=== PATIENT | male | born 1940 | race Caucasian/White ===

== ENCOUNTER → 2019-01-25 | Outpatient (CLI) | payer MEDICARE | END | disposition home or self-care (01) | LOC: CVU 07:29 | PROVIDERS: ATTEND Internal Medicine | DX: E11.51 Type 2 diabetes mellitus with diabetic peripheral angiopathy without gangrene (principal); I70.202 Unspecified atherosclerosis of native arteries of extremities, left leg; I70.291 Other atherosclerosis of native arteries of extremities, right leg; I10 Essential (primary) hypertension; E78.5 Hyperlipidemia, unspecified | CPT/HCPCS: 93922; 93925 ==

== ENCOUNTER 2019-04-20 10:34 | Day surgery (SDC) | payer MEDICARE ==
[2019-04-18 11:33] LABS: MEAN CORPUSCULAR HEMOGLOBIN 35.3 pg (27.5-34.5); MEAN CORPUSCULAR HGB CONC 32.9 g/dL (33.2-36.2); MEAN CORPUSCULAR VOLUME 107.4 fL (81-97); MEAN PLATELET VOLUME 6.8 fL (7.4-10.4); PLATELET COUNT 99 x10^3/uL (130-400); RED BLOOD COUNT 4.06 x10^6/uL (4.38-5.82); RED CELL DISTRIBUTION WIDTH 14.9 % (9.4-14.8)
[2019-04-18 11:46] LABS: BASOPHILS # (AUTO) 0.02 x10^3/uL (0-0.1); BASOPHILS % (AUTO) 0 % (0-1); EOSINOPHILS # (AUTO) 0.07 x10^3/uL (0-0.4); EOSINOPHILS % (AUTO) 1 % (1-7); LYMPHOCYTES # (AUTO) 0.82 x10^3/uL (1-3.4); LYMPHOCYTES % (AUTO) 16 % (22-44); MD SCAN; MONOCYTES # (AUTO) 0.47 x10^3/uL (0.2-0.8); MONOCYTES % (AUTO) 9 % (2-9); NEUTROPHILS # (AUTO) 3.92 x10^3/uL (1.8-6.8); NEUTROPHILS % (AUTO) 74 % (42-75)
[2019-04-18 11:54] LABS: CHLORIDE 108 mmol/L (98-107); CREATININE 1.19 mg/dL (0.7-1.3)
[2019-04-18 11:58] LABS: ANION GAP 7 mmol/L (5-15); CALCIUM 8.9 mg/dL (8.5-10.1)
[~2019-04-20] VITALS: Ht 175.3 cm; Wt 93.8 kg
[~2019-04-20 10:34] MED LIST: ALLO300T PO; ATOR40TA78 PO; CARV3.122 PO; CLOP75TA PO; EMPA25TA PO; FINA5TAB4 PO; INSU100I28 SC; LEVO150T5 PO; TRIA0.1218 PO; WARF6TAB47 PO
[2019-04-20 10:58] VITALS: BP 113/69
[2019-04-20] MEDS ORDERED: SODIUM CHLORIDE 0.9% 1,000 ML IV SCH (11:00)
[2019-04-20] MEDS ORDERED: LIDOCAINE-MPF 1%, 5ML ONE (11:41)
[2019-04-20] MEDS ORDERED: FENTANYL PF 100 MCG/2ML ONE (11:58)
[2019-04-20] MEDS ORDERED: NITROGLYCERIN 5 MG/ML, 10ML ONE (11:58)
[2019-04-20] MEDS ORDERED: HEPARIN 1,000 UNITS/ML, 10ML ONE (11:58)
[2019-04-20] MEDS ORDERED: MIDAZOLAM 1 MG/ML, 5ML ONE (11:58)
[2019-04-20] MEDS ORDERED: FLUMAZENIL 0.1 MG/1 ML, 5ML ONE (11:58)
[2019-04-20] MEDS ORDERED: NALOXONE 1 MG/ML, 2ML ONE (11:59)
[2019-04-20] MEDS ORDERED: PROTAMINE SULFATE 10 MG/ML, 25ML ONE (11:59)
[2019-04-20] MEDS ORDERED: VISIPAQUE 270 MG/ML, 150ML BOTTLE ONE (14:00)
[2019-04-20] MEDS ORDERED: CLOPIDOGREL 75 MG TABLET PO ONE (14:30)
== END 2019-04-20 18:20 | disposition home or self-care (01) ==
LOC: OUT 10:34
PROVIDERS: ATTEND Internal Medicine Cardiovascular Disease
DX: I70.213 Atherosclerosis of native arteries of extremities with intermittent claudication, bilateral legs (principal); T81.89XA Other complications of procedures, not elsewhere classified, initial encounter; I25.10 Atherosclerotic heart disease of native coronary artery without angina pectoris; E11.22 Type 2 diabetes mellitus with diabetic chronic kidney disease; I12.9 Hypertensive chronic kidney disease with stage 1 through stage 4 chronic kidney disease, or unspecified chronic kidney disease; N18.3 Chronic kidney disease, stage 3 (moderate); I48.2 Chronic atrial fibrillation; E03.9 Hypothyroidism, unspecified; E78.2 Mixed hyperlipidemia; E66.3 Overweight; Z68.30 Body mass index [BMI] 30.0-30.9, adult; Z79.4 Long term (current) use of insulin; Z79.01 Long term (current) use of anticoagulants; Z79.1 Long term (current) use of non-steroidal anti-inflammatories (NSAID); Z79.899 Other long term (current) drug therapy; Z95.0 Presence of cardiac pacemaker; Z95.2 Presence of prosthetic heart valve; Y83.8 Other surgical procedures as the cause of abnormal reaction of the patient, or of later complication, without mention of misadventure at the time of the procedure
CPT/HCPCS: 36415; 37225; 75625; 75716; 80048; 85025; 99156; 99157; C1714; C1751; C1769; C1894; C2623; J1644; J2250; J3010; Q9966; J2720; J2310

== ENCOUNTER → 2019-11-09 | Outpatient (CLI) | payer MEDICARE | END | disposition home or self-care (01) | LOC: WOUND 09:54 | PROVIDERS: ATTEND Podiatrist Foot & Ankle Surgery | DX: E11.621 Type 2 diabetes mellitus with foot ulcer (principal); L97.421 Non-pressure chronic ulcer of left heel and midfoot limited to breakdown of skin; L97.411 Non-pressure chronic ulcer of right heel and midfoot limited to breakdown of skin; I10 Essential (primary) hypertension; I48.91 Unspecified atrial fibrillation; E78.5 Hyperlipidemia, unspecified; E11.40 Type 2 diabetes mellitus with diabetic neuropathy, unspecified; E03.9 Hypothyroidism, unspecified; G47.30 Sleep apnea, unspecified; M10.9 Gout, unspecified; Z95.0 Presence of cardiac pacemaker | CPT/HCPCS: 97597; G0463 ==

== ENCOUNTER 2019-11-16 09:19 | Outpatient (CLI) | payer MEDICARE ==
[2020-01-22] MEDS ORDERED: CARV6.2512 PO (15:07)
[2020-01-22] MEDS ORDERED: MULT-658 PO (15:07)
[2020-01-22] MEDS ORDERED: TRIA0.1218 PO (15:07)
[2020-01-22] MEDS ORDERED: CHOL10003 PO (15:07)
[2020-01-22] MEDS ORDERED: ALLO100T30 PO (15:07)
[2020-01-22] MEDS ORDERED: ATOR20TA37 PO (15:07)
[2020-01-22] MEDS ORDERED: VIT1TABL46 PO (15:07)
[2020-01-22] MEDS ORDERED: INSU100V13 SQ (15:07)
[2020-01-22] MEDS ORDERED: LISI-170 PO (15:07)
[2020-01-22] MEDS ORDERED: OXYC-302 PO (15:07)
[2020-01-23] MEDS ORDERED: SEMA7TAB PO (21:12)
[2020-02-28] MEDS ORDERED: DOCU100C33 PO (12:43)
[2020-02-28] MEDS ORDERED: Initiate Coumadin Protocol MC (12:43)
[2020-02-28] MEDS ORDERED: CARV3.1212 PO (12:43)
[2020-02-28] MEDS ORDERED: HYDR-3237 PO (12:43)
[2020-03-12] MEDS ORDERED: TAMS-11 PO (14:55)
== END 2019-11-16 23:59 | disposition home or self-care (01) ==
LOC: WOUND 09:19
PROVIDERS: ATTEND Podiatrist Foot & Ankle Surgery
DX: E11.621 Type 2 diabetes mellitus with foot ulcer (principal); L97.421 Non-pressure chronic ulcer of left heel and midfoot limited to breakdown of skin; L97.411 Non-pressure chronic ulcer of right heel and midfoot limited to breakdown of skin; I10 Essential (primary) hypertension; I48.91 Unspecified atrial fibrillation; E78.5 Hyperlipidemia, unspecified; E11.40 Type 2 diabetes mellitus with diabetic neuropathy, unspecified; E03.9 Hypothyroidism, unspecified; G47.30 Sleep apnea, unspecified; M10.9 Gout, unspecified; Z95.0 Presence of cardiac pacemaker
CPT/HCPCS: 97597

== ENCOUNTER → 2019-11-16 | Outpatient (CLI) | payer MEDICARE | END | disposition home or self-care (01) | LOC: CVU 13:52 | PROVIDERS: ATTEND Internal Medicine Cardiovascular Disease | DX: I70.0 Atherosclerosis of aorta (principal); I70.8 Atherosclerosis of other arteries; I70.293 Other atherosclerosis of native arteries of extremities, bilateral legs | CPT/HCPCS: 93922; 93925; 93978 ==

== ENCOUNTER 2019-11-23 09:39 | Outpatient (CLI) | payer MEDICARE | END 2019-11-23 23:59 | disposition home or self-care (01) | LOC: WOUND 09:39 | PROVIDERS: ATTEND Podiatrist Foot & Ankle Surgery | DX: E11.621 Type 2 diabetes mellitus with foot ulcer (principal); L97.421 Non-pressure chronic ulcer of left heel and midfoot limited to breakdown of skin; L97.411 Non-pressure chronic ulcer of right heel and midfoot limited to breakdown of skin; I10 Essential (primary) hypertension; I48.91 Unspecified atrial fibrillation; E78.5 Hyperlipidemia, unspecified; E11.40 Type 2 diabetes mellitus with diabetic neuropathy, unspecified; E03.9 Hypothyroidism, unspecified; G47.30 Sleep apnea, unspecified; M10.9 Gout, unspecified; Z95.0 Presence of cardiac pacemaker | CPT/HCPCS: 97597 ==

== ENCOUNTER 2019-11-30 09:00 | Outpatient (CLI) | payer MEDICARE | END 2019-11-30 23:59 | disposition home or self-care (01) | LOC: WOUND 09:00 | PROVIDERS: ATTEND Podiatrist Foot & Ankle Surgery | DX: E11.621 Type 2 diabetes mellitus with foot ulcer (principal); L97.421 Non-pressure chronic ulcer of left heel and midfoot limited to breakdown of skin; L97.411 Non-pressure chronic ulcer of right heel and midfoot limited to breakdown of skin; I10 Essential (primary) hypertension; I48.91 Unspecified atrial fibrillation; E78.5 Hyperlipidemia, unspecified; E11.40 Type 2 diabetes mellitus with diabetic neuropathy, unspecified; E03.9 Hypothyroidism, unspecified; G47.30 Sleep apnea, unspecified; M10.9 Gout, unspecified; Z95.0 Presence of cardiac pacemaker | CPT/HCPCS: 11042 ==

== ENCOUNTER 2019-12-07 10:27 | Outpatient (CLI) | payer MEDICARE | END 2019-12-07 23:59 | disposition home or self-care (01) | LOC: WOUND 10:27 | PROVIDERS: ATTEND Podiatrist Foot & Ankle Surgery | DX: E11.621 Type 2 diabetes mellitus with foot ulcer (principal); L97.422 Non-pressure chronic ulcer of left heel and midfoot with fat layer exposed; L97.412 Non-pressure chronic ulcer of right heel and midfoot with fat layer exposed; E11.51 Type 2 diabetes mellitus with diabetic peripheral angiopathy without gangrene; E11.40 Type 2 diabetes mellitus with diabetic neuropathy, unspecified; I48.91 Unspecified atrial fibrillation; G89.29 Other chronic pain; E78.5 Hyperlipidemia, unspecified; E03.9 Hypothyroidism, unspecified; G47.30 Sleep apnea, unspecified; M10.9 Gout, unspecified; I10 Essential (primary) hypertension; Z95.0 Presence of cardiac pacemaker | CPT/HCPCS: 11042 ==

== ENCOUNTER 2019-12-12 13:28 | Outpatient (CLI) | payer MEDICARE | END 2019-12-12 23:59 | disposition home or self-care (01) | LOC: WOUND 13:28 | PROVIDERS: ATTEND Nurse Practitioner Family | DX: E11.621 Type 2 diabetes mellitus with foot ulcer (principal); L97.412 Non-pressure chronic ulcer of right heel and midfoot with fat layer exposed; L97.422 Non-pressure chronic ulcer of left heel and midfoot with fat layer exposed; E11.22 Type 2 diabetes mellitus with diabetic chronic kidney disease; I12.9 Hypertensive chronic kidney disease with stage 1 through stage 4 chronic kidney disease, or unspecified chronic kidney disease; N18.9 Chronic kidney disease, unspecified; E11.40 Type 2 diabetes mellitus with diabetic neuropathy, unspecified; E11.51 Type 2 diabetes mellitus with diabetic peripheral angiopathy without gangrene; I10 Essential (primary) hypertension; I70.0 Atherosclerosis of aorta; I70.8 Atherosclerosis of other arteries; I48.91 Unspecified atrial fibrillation; M10.9 Gout, unspecified; G89.29 Other chronic pain; G47.30 Sleep apnea, unspecified; E78.5 Hyperlipidemia, unspecified; E03.9 Hypothyroidism, unspecified; Z95.0 Presence of cardiac pacemaker | CPT/HCPCS: G0463 ==

== ENCOUNTER 2019-12-14 09:37 | Outpatient (CLI) | payer MEDICARE | END 2019-12-14 23:59 | disposition home or self-care (01) | LOC: WOUND 09:37 | PROVIDERS: ATTEND Podiatrist Foot & Ankle Surgery | DX: E11.621 Type 2 diabetes mellitus with foot ulcer (principal); L97.412 Non-pressure chronic ulcer of right heel and midfoot with fat layer exposed; L97.422 Non-pressure chronic ulcer of left heel and midfoot with fat layer exposed; E11.22 Type 2 diabetes mellitus with diabetic chronic kidney disease; I12.9 Hypertensive chronic kidney disease with stage 1 through stage 4 chronic kidney disease, or unspecified chronic kidney disease; N18.9 Chronic kidney disease, unspecified; E11.40 Type 2 diabetes mellitus with diabetic neuropathy, unspecified; E11.51 Type 2 diabetes mellitus with diabetic peripheral angiopathy without gangrene; I10 Essential (primary) hypertension; I70.0 Atherosclerosis of aorta; I70.8 Atherosclerosis of other arteries; I48.91 Unspecified atrial fibrillation; M10.9 Gout, unspecified; G89.29 Other chronic pain; G47.30 Sleep apnea, unspecified; E78.5 Hyperlipidemia, unspecified; E03.9 Hypothyroidism, unspecified; Z95.0 Presence of cardiac pacemaker | CPT/HCPCS: 11042 ==

== ENCOUNTER → 2019-12-18 | Outpatient (CLI) | payer MEDICARE | END | disposition home or self-care (01) | LOC: WOUND 10:48 | PROVIDERS: ATTEND Internal Medicine | DX: E11.621 Type 2 diabetes mellitus with foot ulcer (principal); L97.412 Non-pressure chronic ulcer of right heel and midfoot with fat layer exposed; L97.422 Non-pressure chronic ulcer of left heel and midfoot with fat layer exposed; E11.22 Type 2 diabetes mellitus with diabetic chronic kidney disease; I12.9 Hypertensive chronic kidney disease with stage 1 through stage 4 chronic kidney disease, or unspecified chronic kidney disease; N18.9 Chronic kidney disease, unspecified; E11.40 Type 2 diabetes mellitus with diabetic neuropathy, unspecified; E11.51 Type 2 diabetes mellitus with diabetic peripheral angiopathy without gangrene; I10 Essential (primary) hypertension; I70.0 Atherosclerosis of aorta; I70.8 Atherosclerosis of other arteries; I48.91 Unspecified atrial fibrillation; M10.9 Gout, unspecified; G89.29 Other chronic pain; G47.30 Sleep apnea, unspecified; E78.5 Hyperlipidemia, unspecified; E03.9 Hypothyroidism, unspecified; Z95.0 Presence of cardiac pacemaker | CPT/HCPCS: G0463 ==

== ENCOUNTER → 2019-12-21 | Outpatient (CLI) | payer MEDICARE | END | disposition home or self-care (01) | LOC: WOUND 10:10 | PROVIDERS: ATTEND Podiatrist Foot & Ankle Surgery | DX: E11.621 Type 2 diabetes mellitus with foot ulcer (principal); L97.412 Non-pressure chronic ulcer of right heel and midfoot with fat layer exposed; L97.422 Non-pressure chronic ulcer of left heel and midfoot with fat layer exposed; E11.22 Type 2 diabetes mellitus with diabetic chronic kidney disease; I12.9 Hypertensive chronic kidney disease with stage 1 through stage 4 chronic kidney disease, or unspecified chronic kidney disease; N18.9 Chronic kidney disease, unspecified; E11.40 Type 2 diabetes mellitus with diabetic neuropathy, unspecified; E11.51 Type 2 diabetes mellitus with diabetic peripheral angiopathy without gangrene; I10 Essential (primary) hypertension; I70.0 Atherosclerosis of aorta; I70.8 Atherosclerosis of other arteries; I48.91 Unspecified atrial fibrillation; M10.9 Gout, unspecified; G89.29 Other chronic pain; G47.30 Sleep apnea, unspecified; E78.5 Hyperlipidemia, unspecified; E03.9 Hypothyroidism, unspecified; Z95.0 Presence of cardiac pacemaker | CPT/HCPCS: 11042 ==

== ENCOUNTER → 2019-12-25 | Outpatient (CLI) | payer MEDICARE | END | disposition home or self-care (01) | LOC: WOUND 11:27 | PROVIDERS: ATTEND Internal Medicine | DX: E11.621 Type 2 diabetes mellitus with foot ulcer (principal); L97.412 Non-pressure chronic ulcer of right heel and midfoot with fat layer exposed; L97.422 Non-pressure chronic ulcer of left heel and midfoot with fat layer exposed; E11.22 Type 2 diabetes mellitus with diabetic chronic kidney disease; I12.9 Hypertensive chronic kidney disease with stage 1 through stage 4 chronic kidney disease, or unspecified chronic kidney disease; N18.9 Chronic kidney disease, unspecified; E11.40 Type 2 diabetes mellitus with diabetic neuropathy, unspecified; E11.51 Type 2 diabetes mellitus with diabetic peripheral angiopathy without gangrene; I10 Essential (primary) hypertension; I70.0 Atherosclerosis of aorta; I70.8 Atherosclerosis of other arteries; I48.91 Unspecified atrial fibrillation; M10.9 Gout, unspecified; G89.29 Other chronic pain; G47.30 Sleep apnea, unspecified; E78.5 Hyperlipidemia, unspecified; E03.9 Hypothyroidism, unspecified; Z95.0 Presence of cardiac pacemaker | CPT/HCPCS: G0463 ==

== ENCOUNTER 2019-12-28 09:51 | Outpatient (CLI) | payer MEDICARE | END 2019-12-28 23:59 | disposition home or self-care (01) | LOC: WOUND 09:51 | PROVIDERS: ATTEND Podiatrist Foot & Ankle Surgery | DX: E11.621 Type 2 diabetes mellitus with foot ulcer (principal); L97.412 Non-pressure chronic ulcer of right heel and midfoot with fat layer exposed; L97.422 Non-pressure chronic ulcer of left heel and midfoot with fat layer exposed; E11.22 Type 2 diabetes mellitus with diabetic chronic kidney disease; I12.9 Hypertensive chronic kidney disease with stage 1 through stage 4 chronic kidney disease, or unspecified chronic kidney disease; N18.9 Chronic kidney disease, unspecified; E11.40 Type 2 diabetes mellitus with diabetic neuropathy, unspecified; E11.51 Type 2 diabetes mellitus with diabetic peripheral angiopathy without gangrene; I70.0 Atherosclerosis of aorta; I70.8 Atherosclerosis of other arteries; I48.91 Unspecified atrial fibrillation; M10.9 Gout, unspecified; G89.29 Other chronic pain; G47.30 Sleep apnea, unspecified; E78.5 Hyperlipidemia, unspecified; E03.9 Hypothyroidism, unspecified; Z95.0 Presence of cardiac pacemaker | CPT/HCPCS: 11042 ==

== ENCOUNTER → 2020-01-04 | Outpatient (CLI) | payer MEDICARE | END | disposition home or self-care (01) | LOC: WOUND 08:50 | PROVIDERS: ATTEND Podiatrist Foot & Ankle Surgery | DX: E11.621 Type 2 diabetes mellitus with foot ulcer (principal); L97.412 Non-pressure chronic ulcer of right heel and midfoot with fat layer exposed; L97.422 Non-pressure chronic ulcer of left heel and midfoot with fat layer exposed; E11.22 Type 2 diabetes mellitus with diabetic chronic kidney disease; I12.9 Hypertensive chronic kidney disease with stage 1 through stage 4 chronic kidney disease, or unspecified chronic kidney disease; N18.9 Chronic kidney disease, unspecified; E11.40 Type 2 diabetes mellitus with diabetic neuropathy, unspecified; E11.51 Type 2 diabetes mellitus with diabetic peripheral angiopathy without gangrene; I70.0 Atherosclerosis of aorta; I70.8 Atherosclerosis of other arteries; I48.91 Unspecified atrial fibrillation; M10.9 Gout, unspecified; G89.29 Other chronic pain; G47.30 Sleep apnea, unspecified; E78.5 Hyperlipidemia, unspecified; E03.9 Hypothyroidism, unspecified; Z95.0 Presence of cardiac pacemaker | CPT/HCPCS: 99214 ==

== ENCOUNTER → 2020-01-09 | Outpatient (CLI) | payer MEDICARE | END | disposition home or self-care (01) | LOC: WOUND 11:06 | PROVIDERS: ATTEND Internal Medicine Cardiovascular Disease | DX: E11.621 Type 2 diabetes mellitus with foot ulcer (principal); L97.412 Non-pressure chronic ulcer of right heel and midfoot with fat layer exposed; L97.422 Non-pressure chronic ulcer of left heel and midfoot with fat layer exposed; E11.22 Type 2 diabetes mellitus with diabetic chronic kidney disease; I12.9 Hypertensive chronic kidney disease with stage 1 through stage 4 chronic kidney disease, or unspecified chronic kidney disease; N18.9 Chronic kidney disease, unspecified; E11.40 Type 2 diabetes mellitus with diabetic neuropathy, unspecified; E11.51 Type 2 diabetes mellitus with diabetic peripheral angiopathy without gangrene; I70.0 Atherosclerosis of aorta; I70.8 Atherosclerosis of other arteries; I48.91 Unspecified atrial fibrillation; M10.9 Gout, unspecified; G89.29 Other chronic pain; G47.30 Sleep apnea, unspecified; E78.5 Hyperlipidemia, unspecified; E03.9 Hypothyroidism, unspecified; Z95.0 Presence of cardiac pacemaker | CPT/HCPCS: G0463 ==

== ENCOUNTER 2020-01-11 09:19 | Outpatient (CLI) | payer MEDICARE | END 2020-01-11 23:59 | disposition home or self-care (01) | LOC: WOUND 09:19 | PROVIDERS: ATTEND Podiatrist Foot & Ankle Surgery | DX: E11.621 Type 2 diabetes mellitus with foot ulcer (principal); L97.412 Non-pressure chronic ulcer of right heel and midfoot with fat layer exposed; L97.422 Non-pressure chronic ulcer of left heel and midfoot with fat layer exposed; E11.22 Type 2 diabetes mellitus with diabetic chronic kidney disease; I12.9 Hypertensive chronic kidney disease with stage 1 through stage 4 chronic kidney disease, or unspecified chronic kidney disease; N18.9 Chronic kidney disease, unspecified; E11.40 Type 2 diabetes mellitus with diabetic neuropathy, unspecified; E11.51 Type 2 diabetes mellitus with diabetic peripheral angiopathy without gangrene; I70.0 Atherosclerosis of aorta; I70.8 Atherosclerosis of other arteries; I48.91 Unspecified atrial fibrillation; M10.9 Gout, unspecified; G89.29 Other chronic pain; G47.30 Sleep apnea, unspecified; E78.5 Hyperlipidemia, unspecified; E03.9 Hypothyroidism, unspecified; Z95.0 Presence of cardiac pacemaker | CPT/HCPCS: 11042 ==

== ENCOUNTER → 2020-01-16 | Outpatient (CLI) | payer MEDICARE | END | disposition home or self-care (01) | LOC: WOUND 12:57 | PROVIDERS: ATTEND Nurse Practitioner Family | DX: E11.621 Type 2 diabetes mellitus with foot ulcer (principal); L97.412 Non-pressure chronic ulcer of right heel and midfoot with fat layer exposed; L97.422 Non-pressure chronic ulcer of left heel and midfoot with fat layer exposed; E11.22 Type 2 diabetes mellitus with diabetic chronic kidney disease; I12.9 Hypertensive chronic kidney disease with stage 1 through stage 4 chronic kidney disease, or unspecified chronic kidney disease; N18.9 Chronic kidney disease, unspecified; E11.40 Type 2 diabetes mellitus with diabetic neuropathy, unspecified; E11.51 Type 2 diabetes mellitus with diabetic peripheral angiopathy without gangrene; I70.0 Atherosclerosis of aorta; I70.8 Atherosclerosis of other arteries; I48.91 Unspecified atrial fibrillation; M10.9 Gout, unspecified; G89.29 Other chronic pain; G47.30 Sleep apnea, unspecified; E78.5 Hyperlipidemia, unspecified; E03.9 Hypothyroidism, unspecified; Z95.0 Presence of cardiac pacemaker | CPT/HCPCS: G0463 ==

== ENCOUNTER → 2020-01-18 | Outpatient (CLI) | payer MEDICARE ==
[~2020-01-18] MED LIST changes: +ALLO100T30 PO; +ATOR20TA37 PO; +CARV6.2512 PO; +CHOL10003 PO; +INSU100V13 SQ; +LISI-170 PO; +MULT-658 PO; +OXYC-302 PO; +VIT1TABL46 PO
== END | disposition home or self-care (01) ==
LOC: WOUND 07:53
PROVIDERS: ATTEND Podiatrist Foot & Ankle Surgery
DX: E11.621 Type 2 diabetes mellitus with foot ulcer (principal); L97.412 Non-pressure chronic ulcer of right heel and midfoot with fat layer exposed; L97.422 Non-pressure chronic ulcer of left heel and midfoot with fat layer exposed; E11.22 Type 2 diabetes mellitus with diabetic chronic kidney disease; I12.9 Hypertensive chronic kidney disease with stage 1 through stage 4 chronic kidney disease, or unspecified chronic kidney disease; N18.9 Chronic kidney disease, unspecified; E11.40 Type 2 diabetes mellitus with diabetic neuropathy, unspecified; E11.51 Type 2 diabetes mellitus with diabetic peripheral angiopathy without gangrene; I70.0 Atherosclerosis of aorta; I70.8 Atherosclerosis of other arteries; I48.91 Unspecified atrial fibrillation; M10.9 Gout, unspecified; G89.29 Other chronic pain; G47.30 Sleep apnea, unspecified; E78.5 Hyperlipidemia, unspecified; E03.9 Hypothyroidism, unspecified; Z95.0 Presence of cardiac pacemaker
CPT/HCPCS: 97597

== ENCOUNTER 2020-03-26 23:06 | Inpatient (IN) | payer MEDICARE ==
[~2020-03-26] VITALS: Ht 177.8 cm; Wt 78.0 kg
[~2020-03-26 23:06] MED LIST changes: +CARV3.1212 PO; +DOCU100C33 PO; +HYDR-3237 PO; +Initiate Coumadin Protocol MC; +SEMA7TAB PO; +TAMS-11 PO
[2020-03-26] MEDS ORDERED: SODIUM CHLORIDE 0.9% 1,000 ML IV ONE (23:40)
--- NOTE | 2020-03-26 23:53 | NUR ---
Pt to room 34 per wheelchair. Pt presents to the ED tonight with c/o redness at his incision site in the right groin. Pt had a fem-pop bypass back in February here at [place]. Pt was just released home from [facility] yesterday from rehab. Patient has been tested 2x for the COVID, and both tests came back positive, however he has never experienced any symptoms and has not been ill. RN helped patient undress to put gown on. Upon removing pants, RN noticed that the patients right pant leg around the ankle was soaked through with a yellow liquid. Upon removing pants, RN see multiple draining blisters to right ankle and lower leg. Pt has very cold extremity, with a blackened middle toe, and around the big toe nail bed. No palpable pulses present. Doppler is also negative for pulses. Pt's left lower leg has weeping edema to the posterior side where there is a wound on the back of his leg and his ankle. Pt has an open wound that follows the incision path on the right inner thigh. Dressings removed for wound assessment, and yellow drainage noted on the dressings. Pulses in the left lower extremity are not palpable, but can be dopplered, however very faint. Spot of pulses marked with a permanent marker. Pt right groin has a well approximated and healing incision in the groin area, with a small lump and increased redness. Pt states the redness is new as of today, and the bump is a couple of days old. Pt placed in gown, monitor applied, call light given with instructions and multiple warm blankets applied. Pt wanted to give his his wallet, but she was told to go home as he would most likely be admitted, and there is a no visitor policy.
[2020-03-27] MEDS ORDERED: SODIUM CHLORIDE FLUSH 10ML SYR IVF ONE
[2020-03-27] MEDS ORDERED: VANCOMYCIN 1,700 MG in SODIUM CHLORIDE 0.9% 500 ML IV ONE
[2020-03-27] MEDS ORDERED: AMPICILLIN/SULBACTAM 3 GM in SODIUM CHLORIDE 0.9% 100 ML IV ONE
--- NOTE | 2020-03-27 00:09 | NUR ---
at bedside. Pt has very dry cracked skin, leonila on the left lower leg. Right lower leg has weeping edema, and surrounding area is bright red. Orders received.
[2020-03-27 00:28] LABS: INTERNATIONAL NORMALIZED RATIO 1.48 (0.93-1.1); PROTHROMBIN TIME 15.7 Seconds (9.6-11.5)
[2020-03-27 00:30] LABS: ALBUMIN 2.2 g/dL (3.4-5.0); ANION GAP 5 mmol/L (5-15); CALCIUM 8.6 mg/dL (8.5-10.1); CHLORIDE 102 mmol/L (98-107); CREATININE 0.93 mg/dL (0.7-1.3)
[2020-03-27] MEDS ORDERED: VANCOMYCIN 1,700 MG in SODIUM CHLORIDE 0.9% 250 ML IV ONE (00:30)
[2020-03-27 00:31] LABS: MEAN CORPUSCULAR HEMOGLOBIN 34.4 pg (27.5-34.5); MEAN CORPUSCULAR HGB CONC 32.4 g/dL (33.2-36.2); MEAN CORPUSCULAR VOLUME 106.3 fL (81-97); MEAN PLATELET VOLUME 7.4 fL (7.4-10.4); PLATELET COUNT 155 x10^3/uL (130-400); RED BLOOD COUNT 2.73 x10^6/uL (4.38-5.82); RED CELL DISTRIBUTION WIDTH 20.1 % (9.4-14.8)
--- NOTE | 2020-03-27 00:59 | NUR ---
NEED IV FOR CTA
[2020-03-27 01:00] LABS: BASOPHILS # (AUTO) 0.04 x10^3/uL (0-0.1); BASOPHILS % (AUTO) 0 % (0-1); EOSINOPHILS # (AUTO) 0.04 x10^3/uL (0-0.4); EOSINOPHILS % (AUTO) 0 % (1-7); LYMPHOCYTES # (AUTO) 0.97 x10^3/uL (1-3.4); LYMPHOCYTES % (AUTO) 10 % (22-44); MD SCAN; MONOCYTES # (AUTO) 0.84 x10^3/uL (0.2-0.8); MONOCYTES % (AUTO) 8 % (2-9); NEUTROPHILS # (AUTO) 8.07 x10^3/uL (1.8-6.8); NEUTROPHILS % (AUTO) 81 % (42-75)
[2020-03-27] MEDS ORDERED: PLEASE ENTER ACCURATE WEIGHT MC SCH (02:00)
[2020-03-27] MEDS ORDERED: OMNIPAQUE 350 MG/ML, 100ML BOTTLE ONE (02:44)
[2020-03-27] MEDS ORDERED: ACETAMINOPHEN 325 MG TABLET PO PRN (03:00)
[2020-03-27] MEDS ORDERED: ONDANSETRON 2MG/ML, 2ML IVPush PRN (03:00)
[2020-03-27] MEDS ORDERED: HEPARIN 5,000 UNITS/ML, 1ML IV ONE (03:00)
[2020-03-27] MEDS ORDERED: morphine SULFATE 10 MG/ML, 1ML IVPush PRN (03:00)
[2020-03-27] MEDS ORDERED: PHARMACOKINETIC MONITORING MC PRN (03:30)
[2020-03-27] MEDS ORDERED: VANCOMYCIN PER PHARMACY MC PRN ×2 (03:30)
[2020-03-27 04:07] VITALS: BP 122/82
[2020-03-27] MEDS: HEPARIN 25,000 UNITS/250ML PMX 250 ML IV PRN (04:36)
[2020-03-27 04:52] VITALS: BP 122/82
[2020-03-27] MEDS: LEVOTHYROXINE 150 MCG TABLET PO SCH (05:45)
[2020-03-27] MEDS: HYDROcodone/APAP 5/325 TABLET PO PRN ×4 (05:45→22:45)
[2020-03-27] MEDS: DOCUSATE 100 MG CAPSULE PO PRN ×2 (05:45→21:11)
[2020-03-27] MEDS ORDERED: AMPICILLIN/SULBACTAM 3 GM in SODIUM CHLORIDE 0.9% 100 ML IV SCH (06:00)
[2020-03-27 07:02] VITALS: BP 112/72
[2020-03-27 07:49] LABS: BASOPHILS # (AUTO) 0.03 x10^3/uL (0-0.1); BASOPHILS % (AUTO) 0 % (0-1); EOSINOPHILS # (AUTO) 0.03 x10^3/uL (0-0.4); EOSINOPHILS % (AUTO) 0 % (1-7); LYMPHOCYTES % (AUTO) 11 % (22-44); MD NO; MEAN CORPUSCULAR HEMOGLOBIN 34.7 pg (27.5-34.5); MEAN CORPUSCULAR HGB CONC 32.7 g/dL (33.2-36.2); MEAN PLATELET VOLUME 7.3 fL (7.4-10.4); MONOCYTES # (AUTO) 0.52 x10^3/uL (0.2-0.8); MONOCYTES % (AUTO) 6 % (2-9); NEUTROPHILS # (AUTO) 7.61 x10^3/uL (1.8-6.8); NEUTROPHILS % (AUTO) 83 % (42-75); PLATELET COUNT 135 x10^3/uL (130-400); RED BLOOD COUNT 2.55 x10^6/uL (4.38-5.82); RED CELL DISTRIBUTION WIDTH 20.4 % (9.4-14.8)
[2020-03-27] MEDS: INSULIN LISPRO 100 UNITS/ML, PEN SQ-INSULIN SCH ×4 (08:01→21:00)
[2020-03-27] MEDS: TAMSULOSIN 0.4 MG CAP.ER.24H PO SCH (10:00)
[2020-03-27] MEDS: FINASTERIDE 5 MG TABLET PO SCH (10:01)
[2020-03-27] MEDS: CARVEDILOL 3.125 MG TABLET PO SCH ×2 (10:01→21:10)
[2020-03-27] MEDS: ALLOPURINOL 100 MG TABLET PO SCH (10:01)
[2020-03-27] MEDS: MEROPENEM 1 GM in SODIUM CHLORIDE 0.9% 100 ML IV SCH ×2 (10:02→18:13)
[2020-03-27 14:23] VITALS: BP 117/76
[2020-03-27 15:45] LABS: BASOPHILS # (AUTO) 0.02 x10^3/uL (0-0.1); BASOPHILS % (AUTO) 0 % (0-1); EOSINOPHILS # (AUTO) 0.03 x10^3/uL (0-0.4); EOSINOPHILS % (AUTO) 0 % (1-7); LYMPHOCYTES % (AUTO) 11 % (22-44); MD NO; MEAN CORPUSCULAR HEMOGLOBIN 34.7 pg (27.5-34.5); MEAN CORPUSCULAR HGB CONC 32.6 g/dL (33.2-36.2); MEAN CORPUSCULAR VOLUME 106.3 fL (81-97); MONOCYTES # (AUTO) 0.43 x10^3/uL (0.2-0.8); MONOCYTES % (AUTO) 5 % (2-9); NEUTROPHILS # (AUTO) 6.58 x10^3/uL (1.8-6.8); NEUTROPHILS % (AUTO) 83 % (42-75); PLATELET COUNT 144 x10^3/uL (130-400); RED BLOOD COUNT 2.67 x10^6/uL (4.38-5.82); RED CELL DISTRIBUTION WIDTH 20.8 % (9.4-14.8)
[2020-03-27] MEDS: HEPARIN 5,000 UNITS/ML, 1ML IV PRN ×2 (16:48→23:34)
[2020-03-27 19:02] VITALS: BP 108/70
[2020-03-27] MEDS ORDERED: INSULIN GLARGINE 100 UNITS/ML, PEN SQ-INSULIN SCH (21:00)
[2020-03-27] MEDS: ATORVASTATIN 20 MG TABLET PO SCH (21:10)
[2020-03-27] MEDS ORDERED: TEMAZEPAM 15 MG CAPSULE ONE (22:41)
[2020-03-27] MEDS ORDERED: TEMAZEPAM 15 MG CAPSULE PO PRN (23:00)
[2020-03-28 00:07] VITALS: BP 98/64
[2020-03-28] MEDS: MEROPENEM 1 GM in SODIUM CHLORIDE 0.9% 100 ML IV SCH ×3 (02:13→18:11)
[2020-03-28] MEDS: LEVOTHYROXINE 150 MCG TABLET PO SCH (06:06)
[2020-03-28 06:32] LABS: BASOPHILS # (AUTO) 0.06 x10^3/uL (0-0.1); BASOPHILS % (AUTO) 1 % (0-1); EOSINOPHILS % (AUTO) 2 % (1-7); LYMPHOCYTES # (AUTO) 1.21 x10^3/uL (1-3.4); LYMPHOCYTES % (AUTO) 21 % (22-44); MD NO; MEAN CORPUSCULAR HEMOGLOBIN 34.9 pg (27.5-34.5); MEAN CORPUSCULAR HGB CONC 33.2 g/dL (33.2-36.2); MEAN CORPUSCULAR VOLUME 105.1 fL (81-97); MEAN PLATELET VOLUME 7.3 fL (7.4-10.4); MONOCYTES % (AUTO) 9 % (2-9); NEUTROPHILS # (AUTO) 3.97 x10^3/uL (1.8-6.8); NEUTROPHILS % (AUTO) 68 % (42-75); PLATELET COUNT 140 x10^3/uL (130-400); RED BLOOD COUNT 2.52 x10^6/uL (4.38-5.82); RED CELL DISTRIBUTION WIDTH 20.6 % (9.4-14.8)
[2020-03-28 06:39] LABS: ANION GAP 5 mmol/L (5-15); CALCIUM 8.3 mg/dL (8.5-10.1); CHLORIDE 108 mmol/L (98-107); CREATININE 0.76 mg/dL (0.7-1.3)
[2020-03-28] MEDS: HEPARIN 5,000 UNITS/ML, 1ML IV PRN ×2 (06:48→15:45)
[2020-03-28] MEDS: INSULIN LISPRO 100 UNITS/ML, PEN SQ-INSULIN SCH ×4 (07:55→20:50)
[2020-03-28 07:59] VITALS: BP 125/81
[2020-03-28] MEDS: TAMSULOSIN 0.4 MG CAP.ER.24H PO SCH (08:05)
[2020-03-28] MEDS: FINASTERIDE 5 MG TABLET PO SCH (08:05)
[2020-03-28] MEDS: CARVEDILOL 3.125 MG TABLET PO SCH ×2 (08:05→20:48)
[2020-03-28] MEDS: ALLOPURINOL 100 MG TABLET PO SCH (08:05)
[2020-03-28] MEDS: LINEZOLID 600 MG TABLET PO SCH ×2 (08:05→20:48)
[2020-03-28] MEDS: HYDROcodone/APAP 5/325 TABLET PO PRN ×3 (08:05→21:16)
[2020-03-28 13:42] VITALS: BP 107/69
[2020-03-28] MEDS: HEPARIN 25,000 UNITS/250ML PMX 250 ML IV PRN (15:43)
[2020-03-28 19:43] VITALS: BP 103/66
[2020-03-28] MEDS: ATORVASTATIN 20 MG TABLET PO SCH (20:48)
[2020-03-28] MEDS: TEMAZEPAM 15 MG CAPSULE PO PRN (22:34)
[2020-03-29 02:46] VITALS: BP 117/77
[2020-03-29] MEDS: MEROPENEM 1 GM in SODIUM CHLORIDE 0.9% 100 ML IV SCH ×3 (02:46→20:11)
[2020-03-29] MEDS: LEVOTHYROXINE 150 MCG TABLET PO SCH (06:17)
[2020-03-29] MEDS: HEPARIN 25,000 UNITS/250ML PMX 250 ML IV PRN (06:17)
[2020-03-29 07:39] VITALS: BP 127/66
[2020-03-29] MEDS: FINASTERIDE 5 MG TABLET PO SCH (08:36)
[2020-03-29] MEDS: TAMSULOSIN 0.4 MG CAP.ER.24H PO SCH (08:36)
[2020-03-29] MEDS: CARVEDILOL 3.125 MG TABLET PO SCH ×2 (08:37→20:11)
[2020-03-29] MEDS: LINEZOLID 600 MG TABLET PO SCH ×2 (08:37→20:11)
[2020-03-29] MEDS: INSULIN LISPRO 100 UNITS/ML, PEN SQ-INSULIN SCH ×4 (08:37→20:11)
[2020-03-29] MEDS: ALLOPURINOL 100 MG TABLET PO SCH (08:37)
[2020-03-29] MEDS: HYDROcodone/APAP 5/325 TABLET PO PRN ×3 (09:37→21:58)
[2020-03-29 12:33] VITALS: BP 93/65
[2020-03-29 19:59] VITALS: BP 107/72
[2020-03-29] MEDS: ATORVASTATIN 20 MG TABLET PO SCH (20:11)
[2020-03-30] MEDS: HEPARIN 25,000 UNITS/250ML PMX 250 ML IV PRN ×2 (01:11→19:06)
[2020-03-30 02:00] VITALS: BP 104/64
[2020-03-30] MEDS: MEROPENEM 1 GM in SODIUM CHLORIDE 0.9% 100 ML IV SCH ×3 (04:16→21:06)
[2020-03-30] MEDS: LEVOTHYROXINE 150 MCG TABLET PO SCH (05:49)
[2020-03-30 06:38] LABS: BASOPHILS # (AUTO) 0.02 x10^3/uL (0-0.1); BASOPHILS % (AUTO) 0 % (0-1); EOSINOPHILS % (AUTO) 2 % (1-7); LYMPHOCYTES # (AUTO) 1.03 x10^3/uL (1-3.4); LYMPHOCYTES % (AUTO) 20 % (22-44); MD NO; MEAN CORPUSCULAR HEMOGLOBIN 34.9 pg (27.5-34.5); MEAN CORPUSCULAR HGB CONC 32.6 g/dL (33.2-36.2); MEAN CORPUSCULAR VOLUME 106.9 fL (81-97); MEAN PLATELET VOLUME 7.2 fL (7.4-10.4); MONOCYTES # (AUTO) 0.54 x10^3/uL (0.2-0.8); MONOCYTES % (AUTO) 11 % (2-9); NEUTROPHILS # (AUTO) 3.36 x10^3/uL (1.8-6.8); NEUTROPHILS % (AUTO) 67 % (42-75); PLATELET COUNT 130 x10^3/uL (130-400); RED BLOOD COUNT 2.72 x10^6/uL (4.38-5.82); RED CELL DISTRIBUTION WIDTH 20.5 % (9.4-14.8)
[2020-03-30] MEDS: HEPARIN 5,000 UNITS/ML, 1ML IV PRN (06:41)
[2020-03-30] MEDS: INSULIN LISPRO 100 UNITS/ML, PEN SQ-INSULIN SCH ×4 (07:00→20:58)
[2020-03-30 08:09] VITALS: BP 117/77
[2020-03-30] MEDS: CARVEDILOL 3.125 MG TABLET PO SCH ×2 (08:34→21:05)
[2020-03-30] MEDS: ALLOPURINOL 100 MG TABLET PO SCH (08:34)
[2020-03-30] MEDS: FINASTERIDE 5 MG TABLET PO SCH (08:34)
[2020-03-30] MEDS: LINEZOLID 600 MG TABLET PO SCH ×2 (08:34→21:05)
[2020-03-30] MEDS: TAMSULOSIN 0.4 MG CAP.ER.24H PO SCH (08:34)
[2020-03-30 11:36] VITALS: BP 114/81
[2020-03-30 12:23] VITALS: BP 109/74
[2020-03-30] MEDS: HYDROcodone/APAP 5/325 TABLET PO PRN ×3 (13:54→23:02)
[2020-03-30 18:44] VITALS: BP 108/71
[2020-03-30] MEDS: ATORVASTATIN 20 MG TABLET PO SCH (21:05)
[2020-03-30] MEDS: INSULIN GLARGINE 100 UNITS/ML, PEN SQ-INSULIN SCH (21:06)
[2020-03-31 01:29] VITALS: BP 103/70
[2020-03-31] MEDS: HYDROcodone/APAP 5/325 TABLET PO PRN ×4 (03:07→22:04)
[2020-03-31] MEDS: LEVOTHYROXINE 150 MCG TABLET PO SCH (05:04)
[2020-03-31] MEDS: MEROPENEM 1 GM in SODIUM CHLORIDE 0.9% 100 ML IV SCH ×3 (05:04→20:00)
[2020-03-31] MEDS: INSULIN LISPRO 100 UNITS/ML, PEN SQ-INSULIN SCH ×4 (07:00→20:06)
[2020-03-31 08:11] VITALS: BP 130/80
[2020-03-31] MEDS: CARVEDILOL 3.125 MG TABLET PO SCH ×2 (08:14→20:16)
[2020-03-31] MEDS: FINASTERIDE 5 MG TABLET PO SCH (08:14)
[2020-03-31] MEDS: TAMSULOSIN 0.4 MG CAP.ER.24H PO SCH (08:14)
[2020-03-31] MEDS: LINEZOLID 600 MG TABLET PO SCH ×2 (08:14→20:16)
[2020-03-31] MEDS: ALLOPURINOL 100 MG TABLET PO SCH (08:14)
[2020-03-31 12:35] VITALS: BP 120/62
[2020-03-31] MEDS: HEPARIN 25,000 UNITS/250ML PMX 250 ML IV PRN (13:17)
[2020-03-31] MEDS: DOCUSATE 100 MG CAPSULE PO PRN (20:15)
[2020-03-31] MEDS: ATORVASTATIN 20 MG TABLET PO SCH (20:16)
[2020-03-31] MEDS: INSULIN GLARGINE 100 UNITS/ML, PEN SQ-INSULIN SCH (20:17)
[2020-03-31 20:19] VITALS: BP 111/73
[2020-04-01 02:26] VITALS: BP 119/70
[2020-04-01] MEDS: MEROPENEM 1 GM in SODIUM CHLORIDE 0.9% 100 ML IV SCH ×3 (04:27→19:37)
[2020-04-01] MEDS: LEVOTHYROXINE 150 MCG TABLET PO SCH (05:24)
[2020-04-01] MEDS: HEPARIN 25,000 UNITS/250ML PMX 250 ML IV PRN ×2 (05:24→21:49)
[2020-04-01] MEDS: INSULIN LISPRO 100 UNITS/ML, PEN SQ-INSULIN SCH ×4 (06:01→19:38)
[2020-04-01 06:38] VITALS: BP 109/69
[2020-04-01] MEDS: ALLOPURINOL 100 MG TABLET PO SCH (08:09)
[2020-04-01] MEDS: LINEZOLID 600 MG TABLET PO SCH ×2 (08:09→19:38)
[2020-04-01] MEDS: TAMSULOSIN 0.4 MG CAP.ER.24H PO SCH (08:09)
[2020-04-01] MEDS: FINASTERIDE 5 MG TABLET PO SCH (08:09)
[2020-04-01] MEDS: CARVEDILOL 3.125 MG TABLET PO SCH ×2 (08:09→19:38)
[2020-04-01] MEDS: HYDROcodone/APAP 5/325 TABLET PO PRN ×3 (09:45→21:49)
[2020-04-01 14:07] VITALS: BP 92/60
[2020-04-01 14:25] VITALS: BP 111/68
[2020-04-01] MEDS: DOCUSATE 100 MG CAPSULE PO PRN (17:44)
[2020-04-01 18:51] VITALS: BP 102/63
[2020-04-01] MEDS: ATORVASTATIN 20 MG TABLET PO SCH (19:38)
[2020-04-01] MEDS: INSULIN GLARGINE 100 UNITS/ML, PEN SQ-INSULIN SCH (21:46)
[2020-04-02] MEDS: HYDROcodone/APAP 5/325 TABLET PO PRN ×4 (02:03→21:03)
[2020-04-02 02:22] VITALS: BP 109/59
[2020-04-02] MEDS: MEROPENEM 1 GM in SODIUM CHLORIDE 0.9% 100 ML IV SCH ×3 (04:19→20:41)
[2020-04-02 05:48] LABS: MEAN CORPUSCULAR HGB CONC 32.8 g/dL (33.2-36.2); MEAN CORPUSCULAR VOLUME 106.6 fL (81-97); RED BLOOD COUNT 2.62 x10^6/uL (4.38-5.82); RED CELL DISTRIBUTION WIDTH 20.2 % (9.4-14.8)
[2020-04-02] MEDS: INSULIN LISPRO 100 UNITS/ML, PEN SQ-INSULIN SCH ×4 (05:57→20:41)
[2020-04-02] MEDS: LEVOTHYROXINE 150 MCG TABLET PO SCH (05:58)
[2020-04-02 06:11] LABS: ANION GAP 5 mmol/L (5-15); CALCIUM 8.2 mg/dL (8.5-10.1); CHLORIDE 107 mmol/L (98-107)
[2020-04-02] MEDS: HEPARIN 5,000 UNITS/ML, 1ML IV PRN (06:11)
[2020-04-02 06:13] LABS: CREATININE 0.83 mg/dL (0.7-1.3)
[2020-04-02 06:16] LABS: BASOPHILS # (AUTO) 0.03 x10^3/uL (0-0.1); BASOPHILS % (AUTO) 1 % (0-1); EOSINOPHILS # (AUTO) 0.07 x10^3/uL (0-0.4); EOSINOPHILS % (AUTO) 1 % (1-7); LYMPHOCYTES # (AUTO) 1.08 x10^3/uL (1-3.4); LYMPHOCYTES % (AUTO) 19 % (22-44); MD SCAN; MEAN PLATELET VOLUME 7.4 fL (7.4-10.4); MONOCYTES # (AUTO) 0.38 x10^3/uL (0.2-0.8); MONOCYTES % (AUTO) 7 % (2-9); NEUTROPHILS # (AUTO) 4.02 x10^3/uL (1.8-6.8); NEUTROPHILS % (AUTO) 72 % (42-75); PLATELET COUNT 80 x10^3/uL (130-400)
[2020-04-02 07:30] VITALS: BP 105/54
[2020-04-02] MEDS: CARVEDILOL 3.125 MG TABLET PO SCH ×2 (09:17→20:42)
[2020-04-02] MEDS: LINEZOLID 600 MG TABLET PO SCH ×2 (09:17→20:42)
[2020-04-02] MEDS: ALLOPURINOL 100 MG TABLET PO SCH (09:17)
[2020-04-02] MEDS: TAMSULOSIN 0.4 MG CAP.ER.24H PO SCH (09:17)
[2020-04-02] MEDS: FINASTERIDE 5 MG TABLET PO SCH (09:24)
[2020-04-02 13:51] VITALS: BP 98/67
[2020-04-02] MEDS: HEPARIN 25,000 UNITS/250ML PMX 250 ML IV PRN (13:57)
[2020-04-02] MEDS: MUPIROCIN OINT 2%, 22GM TP SCH (15:44)
[2020-04-02 18:36] VITALS: BP 114/60
[2020-04-02] MEDS: ATORVASTATIN 20 MG TABLET PO SCH (20:42)
[2020-04-02] MEDS: INSULIN GLARGINE 100 UNITS/ML, PEN SQ-INSULIN SCH (21:04)
[2020-04-03 01:37] VITALS: BP 103/66
[2020-04-03] MEDS: HYDROcodone/APAP 5/325 TABLET PO PRN ×3 (01:37→22:01)
[2020-04-03] MEDS: MEROPENEM 1 GM in SODIUM CHLORIDE 0.9% 100 ML IV SCH ×3 (04:23→20:26)
[2020-04-03 05:36] LABS: MEAN CORPUSCULAR HEMOGLOBIN 34.5 pg (27.5-34.5); MEAN CORPUSCULAR HGB CONC 32.4 g/dL (33.2-36.2); MEAN CORPUSCULAR VOLUME 106.3 fL (81-97); MEAN PLATELET VOLUME 6.9 fL (7.4-10.4); PLATELET COUNT 72 x10^3/uL (130-400)
[2020-04-03 05:54] LABS: BASOPHILS # (AUTO) 0.01 x10^3/uL (0-0.1); BASOPHILS % (AUTO) 0 % (0-1); EOSINOPHILS # (AUTO) 0.06 x10^3/uL (0-0.4); EOSINOPHILS % (AUTO) 1 % (1-7); LYMPHOCYTES # (AUTO) 1.03 x10^3/uL (1-3.4); LYMPHOCYTES % (AUTO) 22 % (22-44); MD SCAN; MONOCYTES # (AUTO) 0.38 x10^3/uL (0.2-0.8); MONOCYTES % (AUTO) 8 % (2-9); NEUTROPHILS # (AUTO) 3.21 x10^3/uL (1.8-6.8); NEUTROPHILS % (AUTO) 69 % (42-75)
[2020-04-03] MEDS: LEVOTHYROXINE 150 MCG TABLET PO SCH (06:00)
[2020-04-03] MEDS: MUPIROCIN OINT 2%, 22GM TP SCH ×2 (06:04→16:19)
[2020-04-03] MEDS: INSULIN LISPRO 100 UNITS/ML, PEN SQ-INSULIN SCH ×5 (06:04→20:38)
[2020-04-03] MEDS ORDERED: CHLORHEXIDINE 15 ML UDC MM STA (06:55)
[2020-04-03] MEDS ORDERED: CHLORHEXIDINE 15 ML UDC ONE (06:58)
[2020-04-03] MEDS ORDERED: FENTANYL PF 250 MCG/5ML ONE (07:24)
[2020-04-03] MEDS ORDERED: PHENYLEPHRINE 10 MG/ML ONE (07:29)
[2020-04-03] MEDS ORDERED: SUCCINYLCHOLINE 20 MG/ML, 10ML ONE (07:29)
[2020-04-03] MEDS ORDERED: LIDOCAINE-MPF 2% ,5ML ONE (08:14)
[2020-04-03] MEDS ORDERED: ONDANSETRON 2MG/ML, 2ML ONE (08:18)
[2020-04-03] MEDS ORDERED: DEXAMETHASONE 4 MG/ML, 1ML ONE (08:18)
[2020-04-03] MEDS ORDERED: PROPOFOL 10 MG/ML, 20ML ONE (08:18)
[2020-04-03] MEDS ORDERED: FENTANYL PF 100 MCG/2ML ONE (08:50)
[2020-04-03] MEDS ORDERED: OXYcodone 5 MG/5 ML ORAL.SOL UDC ONE ×2 (08:50→09:13)
[2020-04-03] MEDS: FENTANYL PF 100 MCG/2ML IV PRN ×3 (08:51→09:01)
[2020-04-03] MEDS ORDERED: LABETALOL 5MG/ML, 20ML IV PRN (09:00)
[2020-04-03] MEDS ORDERED: ACETAMINOPHEN 325 MG TABLET PO PRN (09:00)
[2020-04-03] MEDS ORDERED: OXYcodone 5 MG/5 ML ORAL.SOL UDC PO PRN (09:00)
[2020-04-03] MEDS ORDERED: MIDAZOLAM 1 MG/ML, 2ML IV PRN (09:00)
[2020-04-03] MEDS ORDERED: HYDROmorphone 1 MG/ML, 1ML INJ ONE (09:18)
[2020-04-03] MEDS: HYDROmorphone 1 MG/ML, 1ML INJ IVPush PRN ×2 (09:20→10:14)
[2020-04-03 10:10] VITALS: BP 118/72
[2020-04-03] MEDS: ALLOPURINOL 100 MG TABLET PO SCH (11:14)
[2020-04-03] MEDS: TAMSULOSIN 0.4 MG CAP.ER.24H PO SCH (11:14)
[2020-04-03] MEDS: LINEZOLID 600 MG TABLET PO SCH ×2 (11:14→20:28)
[2020-04-03] MEDS: CARVEDILOL 3.125 MG TABLET PO SCH ×2 (11:14→20:28)
[2020-04-03] MEDS: FINASTERIDE 5 MG TABLET PO SCH (11:14)
[2020-04-03] MEDS: CHOLECALCIFEROL 1,000 UNIT TABLET PO SCH (11:14)
[2020-04-03 13:17] VITALS: BP 113/71
[2020-04-03 14:33] VITALS: BP 105/70
[2020-04-03 19:45] VITALS: BP 108/66
[2020-04-03] MEDS: ATORVASTATIN 20 MG TABLET PO SCH (20:28)
[2020-04-03] MEDS: OXYcodone/APAP 5/325MG TABLET PO SCH (20:29)
[2020-04-03] MEDS: INSULIN GLARGINE 100 UNITS/ML, PEN SQ-INSULIN SCH (20:38)
[2020-04-04 01:14] VITALS: BP 109/70
[2020-04-04] MEDS: HYDROcodone/APAP 5/325 TABLET PO PRN ×4 (02:05→15:36)
[2020-04-04] MEDS: MEROPENEM 1 GM in SODIUM CHLORIDE 0.9% 100 ML IV SCH (03:57)
[2020-04-04] MEDS: LEVOTHYROXINE 150 MCG TABLET PO SCH (05:53)
[2020-04-04] MEDS: MUPIROCIN OINT 2%, 22GM TP SCH ×2 (05:56→17:09)
[2020-04-04 06:06] LABS: INTERNATIONAL NORMALIZED RATIO 1.13 (0.93-1.1)
[2020-04-04] MEDS: INSULIN LISPRO 100 UNITS/ML, PEN SQ-INSULIN SCH ×4 (07:20→21:00)
[2020-04-04 08:15] VITALS: BP 99/70
[2020-04-04 09:54] VITALS: BP 99/60
[2020-04-04] MEDS: FINASTERIDE 5 MG TABLET PO SCH (09:57)
[2020-04-04] MEDS: TAMSULOSIN 0.4 MG CAP.ER.24H PO SCH (09:58)
[2020-04-04] MEDS: LINEZOLID 600 MG TABLET PO SCH (09:58)
[2020-04-04] MEDS: CARVEDILOL 3.125 MG TABLET PO SCH ×2 (09:59→21:07)
[2020-04-04] MEDS: ALLOPURINOL 100 MG TABLET PO SCH (09:59)
[2020-04-04] MEDS: CHOLECALCIFEROL 1,000 UNIT TABLET PO SCH (10:02)
[2020-04-04 13:49] VITALS: BP 104/70
[2020-04-04 15:33] VITALS: BP 108/70
[2020-04-04] MEDS: WARFARIN 3 MG TABLET PO-COUM SCH (17:07)
[2020-04-04 19:10] VITALS: BP 106/72
[2020-04-04] MEDS: OXYcodone/APAP 5/325MG TABLET PO SCH (21:07)
[2020-04-04] MEDS: INSULIN GLARGINE 100 UNITS/ML, PEN SQ-INSULIN SCH (21:07)
[2020-04-04] MEDS: ATORVASTATIN 20 MG TABLET PO SCH (21:07)
[2020-04-05 00:54] VITALS: BP 92/58
[2020-04-05] MEDS: HYDROcodone/APAP 5/325 TABLET PO PRN ×4 (04:06→18:11)
[2020-04-05] MEDS: INSULIN LISPRO 100 UNITS/ML, PEN SQ-INSULIN SCH ×4 (06:23→21:00)
[2020-04-05] MEDS: LEVOTHYROXINE 150 MCG TABLET PO SCH (06:23)
[2020-04-05] MEDS: MUPIROCIN OINT 2%, 22GM TP SCH ×2 (06:23→18:28)
[2020-04-05 06:35] LABS: INTERNATIONAL NORMALIZED RATIO 1.16 (0.93-1.1); PROTHROMBIN TIME 12.3 Seconds (9.6-11.5)
[2020-04-05 07:21] VITALS: BP 104/66
[2020-04-05] MEDS: CARVEDILOL 3.125 MG TABLET PO SCH ×2 (09:47→21:24)
[2020-04-05] MEDS: FINASTERIDE 5 MG TABLET PO SCH (09:47)
[2020-04-05] MEDS: TAMSULOSIN 0.4 MG CAP.ER.24H PO SCH (09:47)
[2020-04-05] MEDS: ALLOPURINOL 100 MG TABLET PO SCH (09:47)
[2020-04-05] MEDS: CHOLECALCIFEROL 1,000 UNIT TABLET PO SCH (09:48)
--- NOTE | 2020-04-05 12:00 | NUR ---
occupational therapy evaluation completed. Patient will benefit from inpatient therapies minimum 3 hrs/day at acute rehab. Addendum: 04/05/20 at 1214 by Cralos Enrique Quijano OT Amended: Links added.
[2020-04-05 12:59] VITALS: BP 111/76
[2020-04-05] MEDS: WARFARIN 3 MG TABLET PO-COUM SCH (18:12)
[2020-04-05 19:54] VITALS: BP 110/69
[2020-04-05] MEDS: OXYcodone/APAP 5/325MG TABLET PO SCH (21:24)
[2020-04-05] MEDS: ATORVASTATIN 20 MG TABLET PO SCH (21:25)
[2020-04-05] MEDS: INSULIN GLARGINE 100 UNITS/ML, PEN SQ-INSULIN SCH (21:26)
[2020-04-05] MEDS: DOCUSATE 100 MG CAPSULE PO PRN (21:30)
[2020-04-06 01:17] VITALS: BP 125/71
[2020-04-06 05:03] LABS: INTERNATIONAL NORMALIZED RATIO 1.18 (0.93-1.1); PROTHROMBIN TIME 12.5 Seconds (9.6-11.5)
[2020-04-06] MEDS: INSULIN LISPRO 100 UNITS/ML, PEN SQ-INSULIN SCH ×4 (06:16→21:17)
[2020-04-06] MEDS: MUPIROCIN OINT 2%, 22GM TP SCH ×2 (06:16→18:00)
[2020-04-06] MEDS: LEVOTHYROXINE 150 MCG TABLET PO SCH (06:16)
[2020-04-06] MEDS: HYDROcodone/APAP 5/325 TABLET PO PRN ×2 (06:20→10:35)
[2020-04-06 07:16] VITALS: BP 104/65
[2020-04-06] MEDS: CARVEDILOL 3.125 MG TABLET PO SCH ×2 (08:38→21:16)
[2020-04-06] MEDS: CHOLECALCIFEROL 1,000 UNIT TABLET PO SCH (08:39)
[2020-04-06] MEDS: ALLOPURINOL 100 MG TABLET PO SCH (08:39)
[2020-04-06] MEDS: TAMSULOSIN 0.4 MG CAP.ER.24H PO SCH (08:39)
[2020-04-06] MEDS: DOCUSATE 100 MG CAPSULE PO PRN (08:39)
[2020-04-06] MEDS: FINASTERIDE 5 MG TABLET PO SCH (08:39)
[2020-04-06] MEDS: AMPICILLIN/SULBACTAM 3 GM in SODIUM CHLORIDE 0.9% 100 ML IV SCH ×2 (10:42→18:15)
[2020-04-06 12:46] VITALS: BP 114/75
[2020-04-06] MEDS ORDERED: MAGNESIUM HYDROXIDE 8%, 30ML UDC ONE (16:55)
[2020-04-06] MEDS: MAGNESIUM HYDROXIDE 8%, 30ML UDC PO SCH (17:00)
[2020-04-06] MEDS: WARFARIN 3 MG TABLET PO-COUM SCH (18:15)
[2020-04-06 20:50] VITALS: BP 111/68
[2020-04-06] MEDS: OXYcodone/APAP 5/325MG TABLET PO SCH (21:15)
[2020-04-06] MEDS: INSULIN GLARGINE 100 UNITS/ML, PEN SQ-INSULIN SCH (21:16)
[2020-04-06] MEDS: ATORVASTATIN 20 MG TABLET PO SCH (21:16)
[2020-04-06] MEDS: DOCUSATE 100 MG CAPSULE PO SCH (21:16)
[2020-04-07] VITALS (9 sets, daily range): BP systolic 97–147; BP diastolic 60–77
[2020-04-07] MEDS: AMPICILLIN/SULBACTAM 3 GM in SODIUM CHLORIDE 0.9% 100 ML IV SCH ×4 (00:24→20:49)
[2020-04-07] MEDS: LEVOTHYROXINE 150 MCG TABLET PO SCH (05:30)
[2020-04-07] MEDS: MUPIROCIN OINT 2%, 22GM TP SCH ×2 (05:30→16:38)
[2020-04-07 05:53] LABS: INTERNATIONAL NORMALIZED RATIO 1.35 (0.93-1.1); PROTHROMBIN TIME 14.4 Seconds (9.6-11.5)
[2020-04-07 06:01] LABS: ANION GAP 7 mmol/L (5-15); CHLORIDE 106 mmol/L (98-107)
[2020-04-07 06:02] LABS: CREATININE 0.78 mg/dL (0.7-1.3)
[2020-04-07 06:09] LABS: MEAN CORPUSCULAR HEMOGLOBIN 34.7 pg (27.5-34.5); MEAN CORPUSCULAR HGB CONC 32.9 g/dL (33.2-36.2); MEAN CORPUSCULAR VOLUME 105.6 fL (81-97); RED BLOOD COUNT 2.04 x10^6/uL (4.38-5.82); RED CELL DISTRIBUTION WIDTH 20.2 % (9.4-14.8)
[2020-04-07 06:20] LABS: MEAN PLATELET VOLUME 8.2 fL (7.4-10.4)
[2020-04-07 06:22] LABS: PLATELET COUNT 41 x10^3/uL (130-400)
[2020-04-07 06:23] LABS: MD YES
[2020-04-07 06:26] LABS: ANISOCYTOSIS 1+; BAND#(MANUAL) 0.04 x10^3/uL; BANDS%(MANUAL) 1 % (0-7); EOS#(MANUAL) 0.04 x10^3/uL (0.0-0.4); EOS% (MANUAL) 1 % (1-7); LYMPHS% (MANUAL) 21 % (22-44); METAMYELOCYTES# (MANUAL) 0.04 x10^3/uL (0-0); METAMYELOCYTES% (MANUAL) 1 % (0-1); MONOS#(MANUAL) 0.43 x10^3/uL (0.3-2.7); MONOS% (MANUAL) 10 % (2-9); SEG#(MANUAL) 2.84 x10^3/uL (1.8-6.8); SEGS% (MANUAL) 66 % (42-75)
[2020-04-07 06:27] LABS: <PLATELET ESTIMATE> DECREASED; <PLT MORPHOLOGY> NORMAL PLT MORPH; OVALOCYTES 1+; TEAR DROPS 1+
[2020-04-07] MEDS: INSULIN LISPRO 100 UNITS/ML, PEN SQ-INSULIN SCH ×4 (06:28→20:50)
[2020-04-07] MEDS ORDERED: BISACODYL 10 MG SUPP PR PRN (08:00)
[2020-04-07] MEDS: POLYETHYLENE GLYCOL 17 GM PACKET PO SCH ×2 (08:49→20:52)
[2020-04-07] MEDS: MAGNESIUM HYDROXIDE 8%, 30ML UDC PO SCH ×2 (08:50→20:52)
[2020-04-07] MEDS: DOCUSATE 100 MG CAPSULE PO SCH ×2 (08:50→20:46)
[2020-04-07] MEDS: CARVEDILOL 3.125 MG TABLET PO SCH ×2 (08:50→20:46)
[2020-04-07] MEDS: TAMSULOSIN 0.4 MG CAP.ER.24H PO SCH (08:50)
[2020-04-07] MEDS: ALLOPURINOL 100 MG TABLET PO SCH (08:50)
[2020-04-07] MEDS: CHOLECALCIFEROL 1,000 UNIT TABLET PO SCH (08:50)
[2020-04-07] MEDS: FINASTERIDE 5 MG TABLET PO SCH (08:52)
[2020-04-07] MEDS ORDERED: TPN PER PHARMACY MC PRN (10:00)
[2020-04-07] MEDS: HYDROcodone/APAP 5/325 TABLET PO PRN (11:24)
[2020-04-07] MEDS: ATORVASTATIN 20 MG TABLET PO SCH (20:46)
[2020-04-07] MEDS: INSULIN GLARGINE 100 UNITS/ML, PEN SQ-INSULIN SCH (20:50)
[2020-04-07] MEDS: OXYcodone/APAP 5/325MG TABLET PO SCH (22:16)
[2020-04-08] MEDS: AMPICILLIN/SULBACTAM 3 GM in SODIUM CHLORIDE 0.9% 100 ML IV SCH ×4 (03:16→21:22)
[2020-04-08 03:24] VITALS: BP 102/64
[2020-04-08 06:36] LABS: ANION GAP 7 mmol/L (5-15); CALCIUM 7.9 mg/dL (8.5-10.1); CHLORIDE 108 mmol/L (98-107); CREATININE 0.66 mg/dL (0.7-1.3)
[2020-04-08] MEDS: ASPIRIN 81 MG TABLET EC PO SCH (06:37)
[2020-04-08] MEDS: LEVOTHYROXINE 150 MCG TABLET PO SCH (06:37)
[2020-04-08 06:39] LABS: MEAN CORPUSCULAR HEMOGLOBIN 33.9 pg (27.5-34.5); MEAN CORPUSCULAR HGB CONC 32.9 g/dL (33.2-36.2); MEAN CORPUSCULAR VOLUME 102.9 fL (81-97); MEAN PLATELET VOLUME 7.8 fL (7.4-10.4); RED CELL DISTRIBUTION WIDTH 20.5 % (9.4-14.8)
[2020-04-08 06:40] LABS: PLATELET COUNT 44 x10^3/uL (130-400)
[2020-04-08] MEDS: MUPIROCIN OINT 2%, 22GM TP SCH ×2 (06:41→18:38)
[2020-04-08] MEDS: INSULIN LISPRO 100 UNITS/ML, PEN SQ-INSULIN SCH ×4 (07:00→21:00)
[2020-04-08 07:19] LABS: BASOPHILS # (AUTO) 0.02 x10^3/uL (0-0.1); BASOPHILS % (AUTO) 1 % (0-1); EOSINOPHILS # (AUTO) 0.07 x10^3/uL (0-0.4); EOSINOPHILS % (AUTO) 2 % (1-7); LYMPHOCYTES # (AUTO) 1.11 x10^3/uL (1-3.4); LYMPHOCYTES % (AUTO) 27 % (22-44); MD SCAN; MONOCYTES # (AUTO) 0.39 x10^3/uL (0.2-0.8); MONOCYTES % (AUTO) 10 % (2-9); NEUTROPHILS # (AUTO) 2.51 x10^3/uL (1.8-6.8); NEUTROPHILS % (AUTO) 61 % (42-75)
[2020-04-08 07:32] VITALS: BP 101/57
[2020-04-08] MEDS: POLYETHYLENE GLYCOL 17 GM PACKET PO SCH ×2 (08:23→21:00)
[2020-04-08] MEDS: CARVEDILOL 3.125 MG TABLET PO SCH ×2 (08:24→20:58)
[2020-04-08] MEDS: ALLOPURINOL 100 MG TABLET PO SCH (08:24)
[2020-04-08] MEDS: CHOLECALCIFEROL 1,000 UNIT TABLET PO SCH (08:24)
[2020-04-08] MEDS: MAGNESIUM HYDROXIDE 8%, 30ML UDC PO SCH ×2 (08:24→21:00)
[2020-04-08] MEDS: FINASTERIDE 5 MG TABLET PO SCH (08:24)
[2020-04-08] MEDS: TAMSULOSIN 0.4 MG CAP.ER.24H PO SCH (08:24)
[2020-04-08] MEDS: DOCUSATE 100 MG CAPSULE PO SCH ×2 (08:27→20:57)
[2020-04-08] MEDS ORDERED: BISA10SU4 PR (12:57)
[2020-04-08 14:07] VITALS: BP 101/63
[2020-04-08 19:56] VITALS: BP 107/59
[2020-04-08] MEDS: ATORVASTATIN 20 MG TABLET PO SCH (20:58)
[2020-04-08] MEDS: OXYcodone/APAP 5/325MG TABLET PO SCH (20:58)
[2020-04-08] MEDS: INSULIN GLARGINE 100 UNITS/ML, PEN SQ-INSULIN SCH (21:01)
[2020-04-08] MEDS: TEMAZEPAM 15 MG CAPSULE PO PRN (21:25)
[2020-04-09 02:11] VITALS: BP 138/89
[2020-04-09] MEDS: AMPICILLIN/SULBACTAM 3 GM in SODIUM CHLORIDE 0.9% 100 ML IV SCH ×4 (03:32→21:12)
[2020-04-09] MEDS: MUPIROCIN OINT 2%, 22GM TP SCH ×2 (06:23→16:56)
[2020-04-09] MEDS: ASPIRIN 81 MG TABLET EC PO SCH (06:23)
[2020-04-09] MEDS: LEVOTHYROXINE 150 MCG TABLET PO SCH (06:23)
[2020-04-09] MEDS: INSULIN LISPRO 100 UNITS/ML, PEN SQ-INSULIN SCH ×4 (07:00→21:00)
[2020-04-09 08:41] VITALS: BP 120/66
[2020-04-09] MEDS: MAGNESIUM HYDROXIDE 8%, 30ML UDC PO SCH ×2 (08:44→21:00)
[2020-04-09] MEDS: HYDROcodone/APAP 5/325 TABLET PO PRN ×2 (08:44→14:04)
[2020-04-09] MEDS: POLYETHYLENE GLYCOL 17 GM PACKET PO SCH ×2 (08:45→21:00)
[2020-04-09] MEDS: DOCUSATE 100 MG CAPSULE PO SCH ×2 (08:45→21:00)
[2020-04-09] MEDS: TAMSULOSIN 0.4 MG CAP.ER.24H PO SCH (08:45)
[2020-04-09] MEDS: CARVEDILOL 3.125 MG TABLET PO SCH ×2 (08:45→21:12)
[2020-04-09] MEDS: CHOLECALCIFEROL 1,000 UNIT TABLET PO SCH (08:45)
[2020-04-09] MEDS: ALLOPURINOL 100 MG TABLET PO SCH (08:45)
[2020-04-09] MEDS: FINASTERIDE 5 MG TABLET PO SCH (08:46)
[2020-04-09 08:55] LABS: ALANINE AMINOTRANSFERASE 27 U/L (12-78); ALBUMIN 2.4 g/dL (3.4-5.0); ANION GAP 6 mmol/L (5-15); CALCIUM 8.2 mg/dL (8.5-10.1); CHLORIDE 109 mmol/L (98-107); CREATININE 0.71 mg/dL (0.7-1.3)
[2020-04-09 08:57] LABS: ALKALINE PHOSPHATASE 112 U/L (45-117); BILIRUBIN,TOTAL 1.2 mg/dL (0.2-1.0); TOTAL PROTEIN 6.6 g/dL (6.4-8.2)
[2020-04-09 14:50] VITALS: BP 97/57
[2020-04-09 18:38] VITALS: BP 105/59
[2020-04-09] MEDS: ATORVASTATIN 20 MG TABLET PO SCH (21:11)
[2020-04-09] MEDS: OXYcodone/APAP 5/325MG TABLET PO SCH (21:12)
[2020-04-09] MEDS: INSULIN GLARGINE 100 UNITS/ML, PEN SQ-INSULIN SCH (21:13)
[2020-04-10] MEDS: HYDROcodone/APAP 5/325 TABLET PO PRN ×3 (00:15→15:31)
[2020-04-10 01:20] VITALS: BP 109/64
[2020-04-10] MEDS: AMPICILLIN/SULBACTAM 3 GM in SODIUM CHLORIDE 0.9% 100 ML IV SCH ×3 (02:55→15:31)
[2020-04-10] MEDS: ASPIRIN 81 MG TABLET EC PO SCH (06:26)
[2020-04-10] MEDS: LEVOTHYROXINE 150 MCG TABLET PO SCH (06:26)
[2020-04-10] MEDS: MUPIROCIN OINT 2%, 22GM TP SCH (06:27)
[2020-04-10] MEDS: INSULIN LISPRO 100 UNITS/ML, PEN SQ-INSULIN SCH ×3 (07:16→15:34)
[2020-04-10 07:35] VITALS: BP 121/71
[2020-04-10] MEDS: POLYETHYLENE GLYCOL 17 GM PACKET PO SCH (09:06)
[2020-04-10] MEDS: DOCUSATE 100 MG CAPSULE PO SCH (09:06)
[2020-04-10] MEDS: TAMSULOSIN 0.4 MG CAP.ER.24H PO SCH (09:06)
[2020-04-10] MEDS: MAGNESIUM HYDROXIDE 8%, 30ML UDC PO SCH (09:06)
[2020-04-10] MEDS: CARVEDILOL 3.125 MG TABLET PO SCH (09:06)
[2020-04-10] MEDS: FINASTERIDE 5 MG TABLET PO SCH (09:07)
[2020-04-10] MEDS: ALLOPURINOL 100 MG TABLET PO SCH (09:07)
[2020-04-10] MEDS: CHOLECALCIFEROL 1,000 UNIT TABLET PO SCH (09:07)
[2020-04-10] MEDS ORDERED: INSU100I13 SQ-INSULIN (13:58)
[2020-04-10] MEDS ORDERED: HYDR-3240 PO (16:12)
[2020-04-10 16:46] VITALS: BP 116/82
[2020-04-11] MEDS ORDERED: LEVOTHYROXINE 175 MCG TABLET PO SCH (06:00)
== END 2020-04-10 17:51 | DRG 240 ==
LOC: ED 23:56 → EDIP 03-27 02:40 → 4NW 03-27 03:22 → 4NE 03-31 13:20
PROVIDERS: ADMIT Internal Medicine; ATTEND Internal Medicine
PROC: 0J9L0ZZ Drainage of Right Upper Leg Subcutaneous Tissue and Fascia, Open Approach (ICD-10-PCS; 2020-04-03)
PROC: 30233N1 Transfusion of Nonautologous Red Blood Cells into Peripheral Vein, Percutaneous Approach (ICD-10-PCS; 2020-04-03)
PROC: 0Y6H0Z1 Detachment at Right Lower Leg, High, Open Approach (ICD-10-PCS; principal; 2020-04-03 07:30)
DX: T82.7XXA Infection and inflammatory reaction due to other cardiac and vascular devices, implants and grafts, initial encounter (principal); T81.31XA Disruption of external operation (surgical) wound, not elsewhere classified, initial encounter; E11.52 Type 2 diabetes mellitus with diabetic peripheral angiopathy with gangrene; I70.361 Atherosclerosis of unspecified type of bypass graft(s) of the extremities with gangrene, right leg; L02.214 Cutaneous abscess of groin; L97.919 Non-pressure chronic ulcer of unspecified part of right lower leg with unspecified severity; L03.115 Cellulitis of right lower limb; I50.32 Chronic diastolic (congestive) heart failure; L97.309 Non-pressure chronic ulcer of unspecified ankle with unspecified severity; L97.409 Non-pressure chronic ulcer of unspecified heel and midfoot with unspecified severity; D53.9 Nutritional anemia, unspecified; D69.6 Thrombocytopenia, unspecified; E03.9 Hypothyroidism, unspecified; E11.621 Type 2 diabetes mellitus with foot ulcer; E55.9 Vitamin D deficiency, unspecified; E78.5 Hyperlipidemia, unspecified; G89.4 Chronic pain syndrome; I48.91 Unspecified atrial fibrillation; I11.0 Hypertensive heart disease with heart failure; M10.9 Gout, unspecified; N40.1 Benign prostatic hyperplasia with lower urinary tract symptoms; R33.8 Other retention of urine; Z20.828 Contact with and (suspected) exposure to other viral communicable diseases; Z66 Do not resuscitate; Z86.19 Personal history of other infectious and parasitic diseases; Z79.01 Long term (current) use of anticoagulants; Z79.4 Long term (current) use of insulin; Z86.14 Personal history of Methicillin resistant Staphylococcus aureus infection; Z95.0 Presence of cardiac pacemaker; Z95.2 Presence of prosthetic heart valve; M19.90 Unspecified osteoarthritis, unspecified site
CPT/HCPCS: 10030; 36415; 71045; 75635; 78315; 80048; 80053; 82040; 82728; 82962; 83540; 83550; 83735; 84443; 85014; 85018; 85025; 85520; 85610; 86850; 86900; 86923; 87070; 87075; 87102; 87205; 88307; 93005; 96365; G0378; J0295; J1100; J1170; J1644; J2185; J2405; J2704; J3010; J3370; Q9967; A9503; J0330; J1815; J2370; J7030; J7050; P9016; U0001-CS

== ENCOUNTER → 2021-05-08 | Outpatient (CLI) | payer MEDICARE ==
[~2021-05-08] MED LIST changes: +BISA10SU4 PR; +HYDR-2214 PO; +INSU100I13 SQ-INSULIN; -OXYC-302 PO; +OXYC1TAB14 PO
== END | disposition home or self-care (01) ==
LOC: WOUND 14:05
PROVIDERS: ATTEND Podiatrist Foot & Ankle Surgery
DX: E11.621 Type 2 diabetes mellitus with foot ulcer (principal); I70.245 Atherosclerosis of native arteries of left leg with ulceration of other part of foot; L97.522 Non-pressure chronic ulcer of other part of left foot with fat layer exposed; I70.261 Atherosclerosis of native arteries of extremities with gangrene, right leg; E11.22 Type 2 diabetes mellitus with diabetic chronic kidney disease; I13.0 Hypertensive heart and chronic kidney disease with heart failure and stage 1 through stage 4 chronic kidney disease, or unspecified chronic kidney disease; N18.9 Chronic kidney disease, unspecified; I50.30 Unspecified diastolic (congestive) heart failure; E11.40 Type 2 diabetes mellitus with diabetic neuropathy, unspecified; I70.0 Atherosclerosis of aorta; I70.8 Atherosclerosis of other arteries; I48.91 Unspecified atrial fibrillation; M10.9 Gout, unspecified; G47.30 Sleep apnea, unspecified; E78.5 Hyperlipidemia, unspecified; E03.9 Hypothyroidism, unspecified; E11.52 Type 2 diabetes mellitus with diabetic peripheral angiopathy with gangrene; G89.4 Chronic pain syndrome; L84 Corns and callosities; E43 Unspecified severe protein-calorie malnutrition; B35.1 Tinea unguium; I25.10 Atherosclerotic heart disease of native coronary artery without angina pectoris; M19.90 Unspecified osteoarthritis, unspecified site; N40.0 Benign prostatic hyperplasia without lower urinary tract symptoms; Z79.01 Long term (current) use of anticoagulants; Z79.4 Long term (current) use of insulin; Z86.14 Personal history of Methicillin resistant Staphylococcus aureus infection; Z86.19 Personal history of other infectious and parasitic diseases; Z95.0 Presence of cardiac pacemaker; Z95.2 Presence of prosthetic heart valve; Z79.899 Other long term (current) drug therapy; Z96.642 Presence of left artificial hip joint; Z89.511 Acquired absence of right leg below knee; Z68.22 Body mass index [BMI] 22.0-22.9, adult
CPT/HCPCS: 11042; G0463

== ENCOUNTER → 2021-05-15 | Outpatient (CLI) | payer MEDICARE | END | disposition home or self-care (01) | LOC: WOUND 08:46 | PROVIDERS: ATTEND Podiatrist Foot & Ankle Surgery | DX: E11.621 Type 2 diabetes mellitus with foot ulcer (principal); I70.245 Atherosclerosis of native arteries of left leg with ulceration of other part of foot; L97.522 Non-pressure chronic ulcer of other part of left foot with fat layer exposed; L03.116 Cellulitis of left lower limb; I70.261 Atherosclerosis of native arteries of extremities with gangrene, right leg; E11.22 Type 2 diabetes mellitus with diabetic chronic kidney disease; I13.0 Hypertensive heart and chronic kidney disease with heart failure and stage 1 through stage 4 chronic kidney disease, or unspecified chronic kidney disease; N18.9 Chronic kidney disease, unspecified; I50.30 Unspecified diastolic (congestive) heart failure; E11.40 Type 2 diabetes mellitus with diabetic neuropathy, unspecified; I70.0 Atherosclerosis of aorta; I70.8 Atherosclerosis of other arteries; I48.91 Unspecified atrial fibrillation; M10.9 Gout, unspecified; G47.30 Sleep apnea, unspecified; E78.5 Hyperlipidemia, unspecified; E03.9 Hypothyroidism, unspecified; E11.52 Type 2 diabetes mellitus with diabetic peripheral angiopathy with gangrene; G89.4 Chronic pain syndrome; E11.51 Type 2 diabetes mellitus with diabetic peripheral angiopathy without gangrene; L84 Corns and callosities; E43 Unspecified severe protein-calorie malnutrition; B35.1 Tinea unguium; I25.10 Atherosclerotic heart disease of native coronary artery without angina pectoris; M19.90 Unspecified osteoarthritis, unspecified site; N40.0 Benign prostatic hyperplasia without lower urinary tract symptoms; Z79.01 Long term (current) use of anticoagulants; Z79.4 Long term (current) use of insulin; Z86.14 Personal history of Methicillin resistant Staphylococcus aureus infection; Z86.19 Personal history of other infectious and parasitic diseases; Z95.0 Presence of cardiac pacemaker; Z95.2 Presence of prosthetic heart valve; Z79.899 Other long term (current) drug therapy; Z96.642 Presence of left artificial hip joint; Z89.511 Acquired absence of right leg below knee; Z68.22 Body mass index [BMI] 22.0-22.9, adult | CPT/HCPCS: 11042; 87070; 87075; 87077; 87205 ==